=== PATIENT | female | born 1955 | race Hispanic/Latino ===

== ENCOUNTER 2018-12-09 11:37 | Outpatient (CLI) | payer OTHER ==
[2018-12-09 12:35] LABS: Blood Urea Nitrogen 18 mg/dL (7-17)
--- NOTE | 2018-12-09 13:38 | Cat Scan Report ---
CTA CHEST WITH CONTRAST INDICATION : Left chest pain for 4 days, right bundle branch block. TECHNIQUE: Axial imaging performed through the chest, with contrast bolus timing set to maximize opa cification of the pulmonary arteries. Sagittal and coronal reformatted images. 3-plane MIP reformatte d images were obtained. All CT scans at this location are performed using CT dose reduction for ALAR A by means of automated exposure control. 100 mL of intravenous contrast administered. COMPARISON: None FINDINGS: Bolus: Contrast bolus timing is adequate. PTE: No filling defect is present to suggest PTE. Mediastinum: Heart and great vessels appear normal. No pathologic mediastinal adenopathy. Lungs: The costophrenic angles are not included in this exam. Otherwise, the lungs are clear. No par enchymal lung disease, infiltrate, effusion or pneumothorax is identified. Bones: Intact. No fracture or suspicious bony lesion. Upper abdomen: Limited imaging of the upper abdomen shows nothing acute. IMPRESSION: No evidence for pulmonary embolus. Unremarkable CT chest. Signer Name: Akhil Lopez Jr, MD Signed: 12/09/2018 1:33 PM Workstation Name: [id number]
== END 2018-12-09 11:38 | disposition home or self-care (01) ==
LOC: CT 11:37
PROVIDERS: ATTEND Internal Medicine Cardiovascular Disease
DX: R07.9 Chest pain, unspecified (principal); R06.00 Dyspnea, unspecified; I45.10 Unspecified right bundle-branch block
CPT/HCPCS: 36415; 71275; 82565; 84520; Q9967